=== PATIENT | female | born 1960 | race Caucasian/White ===

== ENCOUNTER 2017-05-08 08:03 | Emergency (ER) | payer MEDICAID ==
[~2017-05-08] VITALS: Ht 165.1 cm; Wt 72.6 kg
[~2017-05-08 08:03] MED LIST: AMOXICILLIN AND1 TA2 PO; ATENOLOL25 MG PO; NOMEDS; PHENERGAN 25MG.25 M1 PO; PHENERGAN25 M3 PO; PROMETHAZINE HC25 M1 PO; TOPAMAX100 MG PO; ZOFRAN ODT4 MG PO
--- NOTE | 2017-05-08 08:18 | Emergency Room Report ---
History of Present Illness Time Seen by MD Rodriguez Presenting Problem in Triage Pt arrived:Walked Presenting Problem:SEVERE HEADACHE SINCE LAST NIGHT ALSO NAUSEATED AND VOMITING. 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 N Clinical Suspician of Infection? N Mental Status: 1 - Regular (Normal Baseline) Sepsis Risk:Low Sepsis Risk Have you (or family members/close friends) recently traveled outside the [place]? N If Yes, where/when: Have you had exposure to infectious disease within the past month? TB? Other? Specify: Comment The patient complains of a migraine, onset 2 AM. She has vomiting and photophobia. She has a history of migraines. She is on Topamax for migraines. She has had Imitrex in the past which has made her sick and has also been on other medications without improvement. ALLERGIES Coded Allergies: Sulfa (Sulfonamide Antibiotics) (Severe, TROUBLE BREATHING 05/15/16) butorphanol (From STADOL) (Intermediate, MAKES CRAZY 05/15/16) Home Medications Reported Medications Atenolol (Atenolol) 25 MG PO DAILY Topiramate (Topamax) 100 MG PO BID History Medical History General CAD? No Angina: No DE: No Hypertension? Yes Hyperlipidemia? No CHF? Yes DVT? No PE? No COPD? No Asthma? No Anemia? No GERD? No Gastric ulcers? No GI Bleed? No Hernia? No Thyroid Problems? No Hypothyroidism? No CVA? No Seizures? No Diabetes? No Renal Insuffiency? No End Stage Renal Disease? No UTI? No Stones? No BPH? No GB Disease: Yes Nephritic Syndrome? No Asplenia? No Hepatitis? No Sickle Cell Disease? No Arthritis? No Migraines? No Cataracts? No Glaucoma? No MRSA? No HIV? No TB? No Anxiety? No Depression? No Cancer? No Immunization Hx DT/Tetanus 1-4 YRS Surgical Hx Previous Surgery?Y HERNIA REPAIR BILATERAL TUBAL LIGATION [place] UTERINE ABLATION GUIDE TOUR Hx LMP N/A Family History Family Hx Diabetes No CAD Yes Hypertension Yes Hyperlipidemia No Cancer No TB No Social History Smoking Hx Smoker: Never Smoker Tobacco: No Alcohol Alcohol: No Review of Systems All Other Systems Reviewed and Negative Constitutional denies fever Eyes photophobia Gastrointestinal nausea, vomiting Psychiatric/Neurological headache Physical Exam Vital Signs Vital Signs Date Time Temp Pulse Resp B/P Pulse O2 O2 Flow FiO2 Ox Delivery Rate 05/08 1011 80 16 152/96 95 05/08 0933 16 05/08 0921 80 16 154/103 95 05/08 0831 16 05/08 0809 98.5 83 16 158/103 95 General Appearance mild distress Eye Exam - bilateral eye normal exam, bilateral eye PERRL, bilateral eye EOMI Ear, Nose, Throat hearing grossly normal, normal ENT inspection Neck normal inspection, supple, full range of motion Respiratory Status Yes: trachea midline, chest symmetrical. No: respiratory distress. Lung Sounds bilateral: normal breath sounds, lungs clear. Cardiovascular normal exam, regular rate/rhythm, no peripheral edema, no gallop, no JVD, no murmur, no rub Gastrointestinal normal bowel sounds, soft Extremities normal inspection Neurologic alert, condenser cleaner II-XII nml as tested, normal exam, no motor/sensory deficits, oriented x 3 Mental status normal mood/affect Skin intact, normal color, warm/dry Medical Decision Making LABS/Meds/Orders Pt receiving controlled substance in ED? Yes Farhat was queried for this patient? Yes Comment [id number] rxs. last rx valium on 03/28/17 Results/Orders Current Medication Orders Sig/Dennys Start time Last Medication Dose Route Stop Time Status Admin Morphine Sulfate 0 .STK-MED ONE 05/08 931 DCr .ROUTE Morphine Sulfate 4 MG ONCE ONE 05/08 930 DCr 05/08 IV 05/08 931 0933 Diphenhydramine HCl 25 MG ONCE ONE 05/08 830 DC 05/08 IV 05/08 0831 0832 Ketorolac 30 MG ONCE ONE 05/08 830 DC 05/08 Tromethamine IV 05/08 0831 0831 Prochlorperazine 10 MG ONCE ONE 05/08 830 DC 05/08 Edisylate IV 05/08 0831 0832 Sodium Chloride 1,000 ML .Q1H1M 05/08 830 DC 05/08 IV 05/08 930 0832 Sodium Chloride 10 ML PRN PRN 05/08 830 DCD IV 05/09 0821 Diphenhydramine HCl 0 .STK-MED ONE 05/08 829 DC .ROUTE Sodium Chloride 1,000 ML .STK-MED ONE 05/08 829 DC IV Ketorolac 0 .STK-MED ONE 05/08 828 DC Tromethamine .ROUTE Prochlorperazine 0 .STK-MED ONE 05/08 828 DC Edisylate .ROUTE Orders Procedure Date/time Status IV SALINE LOCK 05/08 822 Active Progress - 9:05 AM: Feels better. Pain is 4/10. Feels drowsy. States wants to wait a few minutes to see if she will need more pain medication. 9:27 AM: Pain unchanged. Requests more medication. Morphine ordered. 10:05 AM: Patient states feels better, ready to be discharged home. She has Esgic plus and Phenergan at home. She says that Zofran sometimes works better. Departure Departure Disposition DC Home or Self Care(routine) Clinical Impression Primary Impression: Migraine Qualifiers: Migraine type: without aura Status migrainosus presence: with status migrainosus Intractability: not intractable Qualified Code: G43.001 - Migraine without aura, not intractable, with status migrainosus Condition STABLE Patient Instructions DI for Migraine Additional Instructions Esgic plus and Phenergan or Zofran for symptoms. Additional instructions for HEADACHE: See your physician as soon as possible for further evaluation. Return immediately if worsening headache, vomiting, problems with vision or speech, fever, numbness or weakness of the extremities, neck pain or stiffness. Prescriptions Current Visit Scripts Ondansetron (Zofran 4MG Odt) 4 MG PO Q8HP PRN NAUSEA AND VOMITING #10 ODT ED Critical Care Critical Care No at 0256
--- NOTE | 2017-05-08 08:18 | Emergency Room Report ---
History of Present Illness Time Seen by MD Rodriguez Presenting Problem in Triage Pt arrived:Walked Presenting Problem:SEVERE HEADACHE SINCE LAST NIGHT ALSO NAUSEATED AND VOMITING. 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 N Clinical Suspician of Infection? N Mental Status: 1 - Regular (Normal Baseline) Sepsis Risk:Low Sepsis Risk Have you (or family members/close friends) recently traveled outside the [place]? N If Yes, where/when: Have you had exposure to infectious disease within the past month? TB? Other? Specify: Comment The patient complains of a migraine, onset 2 AM. She has vomiting and photophobia. She has a history of migraines. She is on Topamax for migraines. She has had Imitrex in the past which has made her sick and has also been on other medications without improvement. ALLERGIES Coded Allergies: Sulfa (Sulfonamide Antibiotics) (Severe, TROUBLE BREATHING 05/15/16) butorphanol (From STADOL) (Intermediate, MAKES CRAZY 05/15/16) Home Medications Reported Medications Atenolol (Atenolol) 25 MG PO DAILY Topiramate (Topamax) 100 MG PO BID History Medical History General CAD? No Angina: No MT: No Hypertension? Yes Hyperlipidemia? No CHF? Yes DVT? No PE? No COPD? No Asthma? No Anemia? No GERD? No Gastric ulcers? No GI Bleed? No Hernia? No Thyroid Problems? No Hypothyroidism? No CVA? No Seizures? No Diabetes? No Renal Insuffiency? No End Stage Renal Disease? No UTI? No Stones? No BPH? No GB Disease: Yes Nephritic Syndrome? No Asplenia? No Hepatitis? No Sickle Cell Disease? No Arthritis? No Migraines? No Cataracts? No Glaucoma? No MRSA? No HIV? No TB? No Anxiety? No Depression? No Cancer? 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 N/A Family History Family Hx Diabetes No CAD Yes Hypertension Yes Hyperlipidemia No Cancer No TB No Social History Smoking Hx Smoker: Never Smoker Tobacco: No Alcohol Alcohol: No Review of Systems All Other Systems Reviewed and Negative Constitutional denies fever Eyes photophobia Gastrointestinal nausea, vomiting Psychiatric/Neurological headache Physical Exam Vital Signs Vital Signs Date Time Temp Pulse Resp B/P Pulse O2 O2 Flow FiO2 Ox Delivery Rate 05/08 1011 80 16 152/96 95 05/08 0933 16 05/08 0921 80 16 154/103 95 05/08 0831 16 05/08 0809 98.5 83 16 158/103 95 General Appearance mild distress Eye Exam - bilateral eye normal exam, bilateral eye PERRL, bilateral eye EOMI Ear, Nose, Throat hearing grossly normal, normal ENT inspection Neck normal inspection, supple, full range of motion Respiratory Status Yes: trachea midline, chest symmetrical. No: respiratory distress. Lung Sounds bilateral: normal breath sounds, lungs clear. 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 Yes Farhat was queried for this patient? Yes Comment [id number] rxs. last rx valium on 03/28/17 Results/Orders Current Medication Orders Sig/Dennys Start time Last Medication Dose Route Stop Time Status Admin Morphine Sulfate 0 .STK-MED ONE 05/08 931 DCr .ROUTE Morphine Sulfate 4 MG ONCE ONE 05/08 930 DCr 05/08 IV 05/08 931 0933 Diphenhydramine HCl 25 MG ONCE ONE 05/08 830 DC 05/08 IV 05/08 0831 0832 Ketorolac 30 MG ONCE ONE 05/08 830 DC 05/08 Tromethamine IV 05/08 0831 0831 Prochlorperazine 10 MG ONCE ONE 05/08 830 DC 05/08 Edisylate IV 05/08 0831 0832 Sodium Chloride 1,000 ML .Q1H1M 05/08 830 DC 05/08 IV 05/08 930 0832 Sodium Chloride 10 ML PRN PRN 05/08 830 DCD IV 05/09 0821 Diphenhydramine HCl 0 .STK-MED ONE 05/08 829 DC .ROUTE Sodium Chloride 1,000 ML .STK-MED ONE 05/08 829 DC IV Ketorolac 0 .STK-MED ONE 05/08 828 DC Tromethamine .ROUTE Prochlorperazine 0 .STK-MED ONE 05/08 828 DC Edisylate .ROUTE Orders Procedure Date/time Status IV SALINE LOCK 05/08 822 Active Progress - 9:05 AM: Feels better. Pain is 4/10. Feels drowsy. States wants to wait a few minutes to see if she will need more pain medication. 9:27 AM: Pain unchanged. Requests more medication. Morphine ordered. 10:05 AM: Patient states feels better, ready to be discharged home. She has Esgic plus and Phenergan at home. She says that Zofran sometimes works better. Departure Departure Disposition DC Home or Self Care(routine) Clinical Impression Primary Impression: Migraine Qualifiers: Migraine type: without aura Status migrainosus presence: with status migrainosus Intractability: not intractable Qualified Code: G43.001 - Migraine without aura, not intractable, with status migrainosus Condition STABLE Patient Instructions DI for Migraine Additional Instructions Esgic plus and Phenergan or Zofran for symptoms. Additional instructions for HEADACHE: See your physician as soon as possible for further evaluation. Return immediately if worsening headache, vomiting, problems with vision or speech, fever, numbness or weakness of the extremities, neck pain or stiffness. Prescriptions Current Visit Scripts Ondansetron (Zofran 4MG Odt) 4 MG PO Q8HP PRN NAUSEA AND VOMITING #10 ODT ED Critical Care Critical Care No at 3636
--- OUTSIDE RECORDS SUMMARY | 2017-05-08 08:43 | External Medical Summary Rpt | CCD ---
Demographics Preferred Language Tuvaluan Marital Status Unknown Amish Affiliation Unknown Race Unknown Ethnic Group Unknown Author Author , JULIET CHUNG Address Unknown Phone Immunization No patient found.
--- OUTSIDE RECORDS SUMMARY | 2017-05-08 08:43 | External Medical Summary Rpt ---
Author Author JULIET [place], [employer] Organization [employer] Address Unknown Phone Unavailable
--- OUTSIDE RECORDS SUMMARY | 2017-05-08 08:43 | External Medical Summary Rpt | CCD ---
Author Author , JULIET CHUNG Address Unknown Phone [email or web address] Care Team Providers Care General Production Manager Name Role Phone Estephania Wu MD, Unavailable Unavailable Estephania Wu MD Purpose Continuity of Care Document - 08-22-2012 through 2016 Problems Code Diagnosis DOS Provider Status 401.9 401.9 08-22-2012 [facility] 535.00 535.00 08-22-2012 [facility] W/O MENTION OF HEMORRHAGE Allergies, Adverse Reactions, Alerts Type Drug Allergy Adverse Reaction to Substance Substance Reaction Severity Butorphanol "WACKS HER OUT". Unknown Sulfamethoxazole S-DIFF. BREATHING Severe Medications Na ND Rx Da Fi Fi Am Da Di Ph RX Ph St me C No te ll ll ou ys ag ar # ys at rm s nt no ma ic us Or Da si cy ia de te s n re d SO 00 03 0 No DI 40 -1 UM 97 5- Lo 98 20 ng CH 30 13 er LO 9 RI Ac DE ti ve 0. 9% SO BELLA TI ON Sa 63 03 0 No li 80 -1 ne 70 5- Lo 10 20 ng Fl 07 13 er us 5 h Ac 10 ti ML ve Sy ri ng e ON 00 03 0 No DA 64 -1 NS 16 5- Lo ET 08 20 ng RO 02 13 er N 5 HC Ac L ti 4 ve MG /2 ML AL FA 00 03 0 No MO 64 -1 TI 16 5- Lo DI 02 20 ng NE 22 13 er 5 20 Ac ti MG ve /2 ML AL ME 00 03 0 No TO 40 -1 CL 93 5- Lo OP 41 20 ng RA 40 13 er UT 1 DE Ac ti 10 ve MG /2 ML AL OR 00 03 0 No OM 64 -1 ET 11 5- Lo SONG 49 20 ng ZI 53 13 er NE 5 Ac 25 ti ve MG /M L AM PU L Vital Signs 03-15-2013 21:23 Name Value Interpretat Reference Comment ion Range Body 98.6 [degF] Temperature BP 72 mm[Hg] Diastolic BP Systolic 125 mm[Hg] Heart 75 /min Rate/Pulse O2% 99 % Respiratory 18 /min Rate 08-22-2012 16:57 Name Value Interpretat Reference Comment ion Range BP 71 mm[Hg] Diastolic BP Systolic 143 mm[Hg] Heart 61 /min Rate/Pulse O2% 99 % Respiratory 18 /min Rate Results Labs Lab Lab Date Result Refere Interp Status Commen Order Detail nces retati t Range on COMPREHENSIVE METABOLIC PANEL (08-22-2012 16:47) Glucose 116 74-106 complet 013 mg/dL ed Bld-mCn 16:47 c BUN 10 7-18 complet Bld-mCn 013 mg/dL ed c 16:47 Creat 1.0 0.6-1.0 complet SerPl-m 013 mg/dL ed Cnc 16:47 ESTIMAT 75 50-200 complet ED 013 ML/MIN ed CREATIN 16:47 INE CLEARAN CE GFR 59 59- complet (ESTIMA 013 ML/MIN ed SOMMER) 16:47 Sodium 141 136-145 complet SerPl-s 013 mmoL/L ed Cnc 16:47 Potassi 3.9 3.5-5.1 complet um 013 mmoL/L ed SerPl-s 16:47 Cnc Chlorid 107 98-107 complet e 013 mmoL/L ed SerPl-s 16:47 Cnc CO2 25 21.0-32 complet SerPl-s 013 mmoL/L .0 ed Cnc 16:47 Calcium 8.7 8.5-10. complet 013 mg/dL 1 ed SerPl-m 16:47 Cnc Prot 08-22- 7.4 6.4-8.2 complet SerPl-m 013 gm/dL ed Cnc 16:47 Albumin 3.7 3.4-5.0 complet 013 gm/dL ed SerPl-m 16:47 Cnc Globuli 3.7 1.3-3.2 complet n 013 gm/dL ed Ser-mCn 16:47 c Albumin 03-15-2 1.0 UNK 1.1-1.8 complet /Glob 013 ed SerPl-m 16:47 Rto Bilirub 15-2 0.4 0.2-1.0 complet 013 mg/dL ed SerPl-m 16:47 Cnc AST -15-2 12 U/L 15-37 complet SerPl-c 013 ed Cnc 16:47 ALT -15-2 23 U/L 30-65 complet SerPl-c 013 ed Cnc 16:47 ALP -15-2 72 U/L 50-136 complet SerPl-c 013 ed Cnc 16:47 Amylase SerPl-cCnc (08-22-2012 16:47) Amylase -15-2 41 U/L 25-115 complet 013 ed SerPl-c 16:47 Cnc LIPASE (08-22-2012 16:47) LIPASE -15-2 124 U/L 73-393 complet 013 ed 16:47 CBC with AUTO DIFF (08-22-2012 16:47) WBC # 03-15-2 8.3 4.8-10. complet Bld 013 K/MM3 8 ed Auto 16:47 RBC # 03-15-2 4.77 4.2-5.4 complet Bld 013 M/mm3 ed Auto 16:47 Hgb -15-2 14.6 12.2-16 complet Bld-mCn 013 g/dL .2 ed c 16:47 Hct Fr -15-2 43.6 % 37.0-47 complet Bld 013 .0 ed 16:47 MCV RBC -15-2 91.4 fl 82.2-97 complet 013 .8 ed 16:47 MCH RBC -15-2 30.7 pg 27-31.2 complet Qn 013 ed Auto 16:47 MEAN 03-15-2 33.6 31.8-35 complet CORPUSC 013 g/dl .4 ed ULAR 16:47 HGB CONC RDW RBC -15-2 13.6 % 11.5-17 complet Auto 013 .5 ed 16:47 Platele -15-2 280 142-424 complet t Bld 013 K/mm3 ed Ql 16:47 Manual MEAN 03-15-2 7.7 fl 7.4-10. complet PLATELE 013 4 ed T 16:47 VOLUME Granulo 03-15-2 82.8 % 37.0-80 complet cytes 013 .0 ed Fr Bld 16:47 Auto LYMPH % 03-15-2 11.6 % 10-50.0 complet 013 ed 16:47 Monocyt 03-15-2 4.8 % 1.7-9.3 complet es Fr 013 ed Bld 16:47 Auto Eosinop 03-15-2 0.4 % 0.1-12. complet hil Fr 013 0 ed Bld 16:47 Auto Basophi 03-15-2 0.4 % 0.1-2.0 complet ls Fr 013 ed Bld 16:47 Auto Granulo 03-15-2 6.9 1.8-7.8 complet cytes # 013 K/mm3 ed Bld 16:47 Auto Lymphoc -15-2 1.0 0.7-4.5 complet ytes Fr 013 K/mm3 ed Bld 16:47 Auto Monocyt -15-2 0.4 0.1-1.0 complet es # 013 K/mm3 ed Bld 16:47 Auto Eosinop -15-2 0.0 0.0-0.4 complet hil # 013 K/mm3 ed Bld 16:47 Auto Basophi -15-2 0.0 0-0.2 complet ls # 013 K/MM3 ed Bld 16:47 Auto Encounters Encounter Start End Date Code Location Performer Type Date Emergency MATTHEW Wu MD (ER) 3 16:37 3 21:25 [facility]
--- OUTSIDE RECORDS SUMMARY | 2017-05-08 08:43 | External Medical Summary Rpt | CCD ---
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
--- OUTSIDE RECORDS SUMMARY | 2017-05-08 08:43 | External Medical Summary Rpt | CCD ---
Demographics Preferred Language Niuean Marital Status Unknown Faith Affiliation Unknown Race Unknown Ethnic Group Unknown Author Author , JULIET CHUNG Address Unknown Phone Immunization No patient found.
[2017-05-08] MEDS ORDERED: ZOFRAN ODT4 MG PO (10:06)
[2017-05-08 10:11] VITALS: BP 152/96
== END 2017-05-08 10:13 | disposition home or self-care (01) ==
LOC: ER 08:03
DX: G43.001 Migraine without aura, not intractable, with status migrainosus (principal); I10 Essential (primary) hypertension